=== PATIENT | male | born 1980 | race Native Hawaiian/Other Pacific Islander ===

== ENCOUNTER 2017-08-13 13:15 | Inpatient (IN) | payer OTHER ==
[~2017-08-13] VITALS: Ht 185.4 cm; Wt 100.9 kg
[2017-08-13 13:18] VITALS: BP 149/94; TEMP 98.1
[2017-08-13 16:16] LABS: PLATELET COUNT 298 K/uL (142-355)
[2017-08-13 16:30] LABS: POTASSIUM 4.2 mmol/L (3.6-5.2)
[2017-08-13 20:15] VITALS: BP 132/90
[2017-08-13 23:30] VITALS: BP 145/99
[2017-08-13 23:45] VITALS: BP 1654/97
[2017-08-14] VITALS (17 sets, daily range): BP systolic 116–166; BP diastolic 70–104; TEMP 97–98.7; Ht 185.4 cm; Wt 100.9 kg
[2017-08-15 00:20] VITALS: BP 138/79; TEMP 97.7
[2017-08-15 04:00] VITALS: BP 122/67; TEMP 97.8
[2017-08-15 05:22] LABS: PLATELET COUNT 256 K/uL (142-355)
[2017-08-15 06:02] LABS: POTASSIUM 3.7 mmol/L (3.6-5.2)
[2017-08-15 20:06] VITALS: BP 139/81; TEMP 97.9
[2017-08-16 00:18] VITALS: BP 126/66; TEMP 97.5
[2017-08-16 04:47] VITALS: BP 124/62; TEMP 98.7
[2017-08-16 05:07] LABS: PLATELET COUNT 258 K/uL (142-355)
[2017-08-16 05:38] LABS: POTASSIUM 3.7 mmol/L (3.6-5.2)
== END 2017-08-16 13:35 | disposition home or self-care (01) | DRG 386 ==
LOC: ED 13:15 → MED/SURG 21:45 → ICU 21:45 → MED/SURG 08-14 09:30 → ICU 08-14 09:30 → MED/SURG 08-14 17:10
PROVIDERS: Internal Medicine; Specialist
DX: K50.912 Crohn's disease, unspecified, with intestinal obstruction (principal); I82.409 Acute embolism and thrombosis of unspecified deep veins of unspecified lower extremity; Z72.0 Tobacco use; K59.09 Other constipation
CPT/HCPCS: 36415; 43754; 74022; 80053; 82150; 83690; 85027; 96361; 96365; 96372; 96375; 96376; 99285; J0696; J1200; J1650; J2175; J2270; J2405; J2930; J3490; Q9963

== ENCOUNTER 2018-06-16 17:53 | Emergency (ER) | payer OTHER ==
[~2018-06-16] VITALS: Ht 185.4 cm; Wt 99.8 kg
[2018-06-16 18:42] LABS: PLATELET COUNT 288 K/uL (142-355)
[2018-06-16 18:55] LABS: POTASSIUM 3.4 mmol/L (3.6-5.2)
[2018-06-16 19:38] VITALS: BP 152/90; TEMP 98.1
== END 2018-06-16 19:45 | disposition home or self-care (01) ==
LOC: ED 17:53
PROVIDERS: Emergency Medicine
DX: R52 Pain, unspecified (principal); R05 Cough; R51 Headache
CPT/HCPCS: 36415; 80053; 85027; 87502; 87651; 96372; 99283; J0696; J1885